=== PATIENT | male | born 1950 | race Caucasian/White ===

== ENCOUNTER 2018-12-18 08:11 | Outpatient (CLI) | payer MEDICARE ==
--- NOTE | 2018-12-18 10:42 | MRI ---
MRI LUMBAR SPINE WITHOUT IV CONTRAST: INDICATIONS: Low back pain for two years, extending down both lower extremities. COMPARISON: Lumbar spine radiograph dated 04/29/2018. FINDINGS: There are five lumbar type vertebrae. The conus is seen to terminate at approximately the superior a spect of L2. There is modic endplate degenerative change at L5-S1. There is loss of normal disk signal and height . There is a mild broad-based bulge, asymmetric to the left. There is mild facet joint degenerative change. There is moderate bilateral neural foraminal narrowing. L4-L5: There is loss of normal disk height and signal. There is a mild broad-based bulge. There is moderate right and mild to moderate left neural foraminal narrowing. L3-L4: There is a broad-based bulge with facet joint degenerative change, inducing mild bilateral ne ural foraminal narrowing. L2-L3: There is a mild broad-based bulge with facet joint degenerative change, inducing mild neural foraminal encroachment. L1-L2: There is mild facet joint degenerative change but no appreciable central canal or neural fora elida narrowing. T12-L1: There is no appreciable central canal or neural foraminal narrowing. IMPRESSION: Multilevel spondylosis of the lumbar spine with multilevel neural foraminal narrowing involving L2-L3 through L5-S1. POS: [facility]
== END 2018-12-18 08:12 | disposition home or self-care (01) ==
LOC: MRI 08:11
PROVIDERS: ATTEND Family Medicine
DX: M54.41 Lumbago with sciatica, right side (principal); M54.42 Lumbago with sciatica, left side; G89.29 Other chronic pain; M47.816 Spondylosis without myelopathy or radiculopathy, lumbar region; M48.061 Spinal stenosis, lumbar region without neurogenic claudication; M48.07 Spinal stenosis, lumbosacral region
CPT/HCPCS: 72148

== ENCOUNTER 2020-09-13 10:16 | Outpatient (CLI) | payer MEDICARE ==
--- NOTE | 2020-09-13 11:31 | RAD ---
XR Hip Rt 2-3 View HISTORY: Right hip pain FINDINGS: No fracture or dislocation is identified. Minimal degenerative changes are present.
--- NOTE | 2020-09-13 12:25 | RAD ---
LUMBAR SPINE 4 VIEWS: Date: 09/13/2020 HISTORY: Lumbar radiculopathy. FINDINGS: Lumbar vertebra maintain height and alignment. Loss of disc space at L4-5 and L5-S1. Mild degenerativ e spurring. Moderate facet hypertrophy. Alignment is preserved with flexion and extension. IMPRESSION: Moderate degenerative changes as described. POS: [facility]
--- NOTE | 2020-09-13 12:33 | MRI ---
MRI LUMBAR SPINE WITHOUT CONTRAST: INDICATION: Lumbar radiculopathy. COMPARISON: Comparison is made to MRI of lumbar spine dated 12/18/2018. FINDINGS: The lumbar vertebrae maintain height and alignment. Degenerative disk changes are again noted at L3- 4, L4-5, and L5-S1. Loss of disk space most prominent at L4-5 and L5-S1. Degenerative spurring from the lumbar vertebrae. L1-2: No significant disk abnormality. Mild facet hypertrophy without central canal or foraminal st enosis. L2-3: Mild diffuse disk bulge. Moderate facet hypertrophy. No central canal or foraminal stenosis. L3-4: Broad-based disk bulge. Moderate facet hypertrophy. Minimal foraminal encroachment from face t hypertrophy without significant stenosis. L4-5: Diffuse disk bulge flattens the anterior thecal sac. Moderate facet hypertrophy. Mild bilate ral foraminal narrowing more severe on the right due to disk bulge and facet hypertrophy. There may be contact with exiting right L4 nerve root. L5-S1: Disk bulge with small central protrusion indenting the anterior thecal sac. Facet hypertroph y. No significant central canal stenosis. Bilateral foraminal stenosis again noted not significantl y changed from the prior exam. IMP: Degenerative disk changes again noted similar to the prior exam of 12/18/2018. Findings at each level are noted above. POS: [facility]
== END 2020-09-13 10:17 | disposition home or self-care (01) ==
LOC: TBSIIMAG 10:16
PROVIDERS: ATTEND Surgery
DX: M51.16 Intervertebral disc disorders with radiculopathy, lumbar region (principal); M25.559 Pain in unspecified hip; M47.26 Other spondylosis with radiculopathy, lumbar region; M51.37 Other intervertebral disc degeneration, lumbosacral region; M48.07 Spinal stenosis, lumbosacral region; M48.061 Spinal stenosis, lumbar region without neurogenic claudication
CPT/HCPCS: 72120; 72148